=== PATIENT | male | born 1965 | race Caucasian/White ===

== ENCOUNTER 2021-08-25 12:59 | Inpatient (IN) | payer MEDICAID, SELFPAY ==
[2021-08-25 13:12] VITALS: BMI 28.1
[2021-08-25 13:45] VITALS: BP 124/77; PULSE 74; RESP 17; TEMP 36.6; O2SAT 96
[2021-08-25] MEDS: acetaminophen 325 mg Tablet 650 MG PO (16:46)
[2021-08-25 20:03] VITALS: BP 123/79; PULSE 73; RESP 19; TEMP 36.6; O2SAT 96
[2021-08-26 06:00] VITALS: BP 147/87; PULSE 67; RESP 17; TEMP 36.6; O2SAT 95
[2021-08-26] MEDS: acetaminophen 325 mg Tablet 650 MG PO ×2 (08:10→15:53)
--- NOTE | 2021-08-26 08:12 | PC.NURSE ---
Patient voices c/o pain rated 8 in posterior neck described as aching and sharp lower back pain when he walks.
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
[2021-08-26] MEDS: hyDROXYzine 25 mg Capsule 50 MG PO (12:35)
[2021-08-26 14:00] VITALS: BP 148/99; PULSE 71; RESP 20; TEMP 36.5; O2SAT 96
[2021-08-26 20:02] VITALS: BP 169/97; PULSE 76; RESP 16; O2SAT 95
[2021-08-26] MEDS: TRAMadol 50 mg Tablet PO (20:08)
[2021-08-26] MEDS: cyclobenzaprine 10 mg Tablet PO (20:08)
[2021-08-26] MEDS: trazodone 50 mg Tablet PO (21:17)
[2021-08-27 06:00] VITALS: BP 160/82; PULSE 67; RESP 18; O2SAT 95
[2021-08-27] MEDS: acetaminophen 325 mg Tablet 650 MG PO (06:48)
[2021-08-27] MEDS: cyclobenzaprine 10 mg Tablet PO ×2 (08:06→17:40)
[2021-08-27] MEDS: ARIPiprazole 10 mg Tablet 20 MG PO (08:06)
[2021-08-27] MEDS: sertraline 50 mg Tablet PO (08:06)
[2021-08-27] MEDS: meloxicam 7.5 mg tablet 15 MG PO (08:06)
[2021-08-27] MEDS: TRAMadol 50 mg Tablet PO ×2 (08:06→17:40)
--- NOTE | 2021-08-27 10:43 | W.PM.NPUPNS ---
Subjective NPU Subjective: Patient presents today reporting that he feels the medication adjustments and decisions made yesterday have been helpful. He did restart the Ultram and he reports that the change from Prozac to Zoloft has been uneventful. He also denies any issues with the increase in the Abilify from 15 to 20 mg. He continues to report significant pain with a long discussion about him returning to [facility] in pain management and thus not getting in the middle of that. Otherwise he is agreeable for us to continue our plan to work with the social work team on discharge planning on Sunday. Mental Status Exam MSE Comments: This is an obese, short white male in hospital scrubs with adequate grooming and eye contact. No abnormal movements but stiff neck when turning head. Cooperative with exam in mild distress. Speech was normal rate and volume. Mood described as still having pain but a little better, affect is subdued. Thought process, organized. Thought content: patient denies suicidal or homicidal ideation, no delusions reported or noted, and endorses auditory and visual hallucinations. Attention and concentration are intact and memory appeared reliable but none were formally tested. He is alert and oriented three times. Insight limited and judgment is fair. Impulse control is limited. Vitals/I&O/Wt Last Vital Signs Temp 97.7 F 08/26/21 14:00 Pulse 76 08/26/21 20:02 Resp 16 08/26/21 20:02 BP 169/97 08/26/21 20:02 Pulse Ox 95 08/26/21 20:02 Weight last 48 hrs Weight 83.915 kg Weight 83.915 kg A&P Assessment and plan (1) Adjustment disorder with mixed disturbance of emotions and conduct: Status: Acute (2) Suicidal ideation: Status: Acute (3) History of bipolar disorder: Status: Acute (4) PTSD (post-traumatic stress disorder): Status: Acute Plan This is a 55 year old white male with a history of mental health issues, diagnosis of bipolar disorder and genetic loading for mental health issues who presents after a recent episode of hallucinations and suicidal ideation reporting he is stable after starting medication and open to changes in those medications. 1. Continue current medications.? We will identify the doses of his medications and increase as indicated. Prozac was switched to Zoloft 50 mg p.o. daily, tramadol 50 mg twice daily was initiated and Abilify was increased from 15 mg daily to 20 mg daily on 08/26/2021. 2. Encourage individual, group and milieu therapy 3. Continue q-15 minute check for safety 4. Recommend sober living treatment at the highest level of care to which the patient is willing to commit. Involuntary Hold Information 96 Hour Hold: 96 Hour Involuntary Admission: No Attestations NPU Medical Necessity Statement*: Inpatient hospitalization is medically necessary and the clinically appropriate intervention at this time. We will monitor medications and make changes as indicated. Likely length of stay is 2-4 days. Coding Level of Care Code Acute Pharmacy Care Coordinator for Chg Fwd Diagnoses Adjustment disorder with mixed disturbance of emotions and conduct F43.25 Suicidal ideation R45.851 History of bipolar disorder Z86.59 PTSD (post-traumatic stress disorder) F43.10
[2021-08-27 14:10] VITALS: BP 138/88; PULSE 85; RESP 12; TEMP 36.7; O2SAT 94
[2021-08-27] MEDS: OLANZapine 5 mg ODT PO (18:42)
[2021-08-27 19:32] VITALS: BP 132/90; PULSE 80; RESP 20; TEMP 36.6; O2SAT 96
[2021-08-27] MEDS: trazodone 50 mg Tablet PO ×2 (20:11→20:44)
[2021-08-28 06:00] VITALS: BP 145/93; PULSE 55; RESP 16; TEMP 36.4; O2SAT 94
[2021-08-28] MEDS: acetaminophen 325 mg Tablet 650 MG PO (06:53)
[2021-08-28] MEDS: hyDROXYzine 25 mg Capsule 50 MG PO ×2 (06:54→15:33)
[2021-08-28] MEDS: meloxicam 7.5 mg tablet 15 MG PO (08:06)
[2021-08-28] MEDS: ARIPiprazole 10 mg Tablet 20 MG PO (08:06)
[2021-08-28] MEDS: TRAMadol 50 mg Tablet PO ×2 (08:07→17:59)
[2021-08-28] MEDS: cyclobenzaprine 10 mg Tablet PO ×2 (08:07→17:59)
[2021-08-28] MEDS: sertraline 50 mg Tablet PO (08:07)
--- NOTE | 2021-08-28 08:46 | W.PM.NPUPNS ---
Subjective NPU Subjective: Patient presents today reporting that he is feeling better with all the changes we made including his Abilify increasing. He reports that in doing so he has abduction symptoms that brought him to the hospital. We discussed that tomorrow he can work with the treatment team on logistics for discharge over the next 48 hours. Mental Status Exam MSE Comments: This is an overweight versus obese, short white male in hospital scrubs with adequate grooming and eye contact. No abnormal movements but stiff neck when turning head. Cooperative with exam in no acute distress. Speech was normal rate and volume. Mood described as still having some breakthrough pain but otherwise doing better, affect congruent. Thought process, organized. Thought content: patient denies suicidal or homicidal ideation, no delusions reported or noted, and endorses auditory and visual hallucinations. Attention and concentration are intact and memory appeared reliable but none were formally tested. He is alert and oriented three times. Insight limited and judgment is fair. Impulse control is limited. Vitals/I&O/Wt Last Vital Signs Temp 98.3 F 08/28/21 19:55 Pulse 81 08/28/21 19:55 Resp 18 08/28/21 19:55 BP 130/86 08/28/21 19:55 Pulse Ox 96 08/28/21 19:55 Weight last 48 hrs Weight 86.908 kg A&P Assessment and plan (1) PTSD (post-traumatic stress disorder): Status: Acute (2) History of bipolar disorder: Status: Acute (3) Suicidal ideation: Status: Acute (4) Adjustment disorder with mixed disturbance of emotions and conduct: Status: Acute Plan This is a 55 year old white male with a history of mental health issues, diagnosis of bipolar disorder and genetic loading for mental health issues who presents after a recent episode of hallucinations and suicidal ideation reporting he is stable after starting medication and open to changes in those medications. 1. Continue current medications.? We will identify the doses of his medications and increase as indicated.? Prozac was switched to Zoloft 50 mg p.o. daily, tramadol 50 mg twice daily was initiated and Abilify was increased from 15 mg daily to 20 mg daily on 08/26/2021. 2. Encourage individual, group and milieu therapy 3. Continue q-15 minute check for safety 4. Recommend sober living treatment at the highest level of care to which the patient is willing to commit. Involuntary Hold Information 96 Hour Hold: 96 Hour Involuntary Admission: No Attestations NPU Medical Necessity Statement*: Inpatient hospitalization is medically necessary and the clinically appropriate intervention at this time. We will monitor medications and make changes as indicated.? Likely length of stay is 1-3 days. Coding Level of Care Code Acute Nurse'S Assistant for g Fwd Diagnoses PTSD (post-traumatic stress disorder) F43.10 History of bipolar disorder Z86.59 Suicidal ideation R45.851 Adjustment disorder with mixed disturbance of emotions and conduct F43.25
[2021-08-28] MEDS: haloperidol 5 mg Tablet PO ×3 (09:05→20:22)
[2021-08-28 14:00] VITALS: BP 139/88; PULSE 75; RESP 18; TEMP 36.7; O2SAT 96
[2021-08-28 19:55] VITALS: BP 130/86; PULSE 81; RESP 18; TEMP 36.8; O2SAT 96
[2021-08-28] MEDS: trazodone 50 mg Tablet PO (20:22)
[2021-08-29 06:00] VITALS: BP 109/68; PULSE 60; RESP 18; TEMP 36.7; O2SAT 97
[2021-08-29] MEDS: ARIPiprazole 10 mg Tablet 20 MG PO (08:17)
[2021-08-29] MEDS: TRAMadol 50 mg Tablet PO (08:19)
[2021-08-29] MEDS: cyclobenzaprine 10 mg Tablet PO (08:19)
[2021-08-29] MEDS: sertraline 50 mg Tablet PO (08:19)
[2021-08-29] MEDS: meloxicam 7.5 mg tablet 15 MG PO (08:20)
[2021-08-29] MEDS: OLANZapine 5 mg ODT PO (09:29)
[2021-08-29 14:00] VITALS: BP 130/89; PULSE 87; RESP 12; TEMP 36.7; O2SAT 93
[2021-08-29 14:40] VITALS: BP 109/68; PULSE 60; RESP 18; TEMP 36.7; O2SAT 97
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
== END 2021-08-29 17:05 | disposition home or self-care (01) | DRG 885 ==
PROVIDERS: Admitting Provider Psychiatry & Neurology Psychiatry; Visit Provider Psychiatry & Neurology Psychiatry
DX: F31.9 Bipolar disorder, unspecified (principal); R45.851 Suicidal ideations; F90.9 Attention-deficit hyperactivity disorder, unspecified type; F43.10 Post-traumatic stress disorder, unspecified; F43.25 Adjustment disorder with mixed disturbance of emotions and conduct
CPT/HCPCS: 97150; 97165